=== PATIENT | female | born 1975 | race Caucasian/White ===

== ENCOUNTER → 2018-06-10 | Outpatient (REF) | END | disposition home or self-care (01) | DRG 951 | LOC: LAB 06:48 | PROVIDERS: ATTEND Family Medicine | DX: Z02.6 Encounter for examination for insurance purposes (principal) ==

== ENCOUNTER 2020-03-17 21:25 | Emergency (ER) | payer OTHER ==
[~2020-03-17] VITALS: Ht 162.6 cm; Wt 67.0 kg
[2020-03-17 21:30] VITALS: BP 140/82
== END 2020-03-17 22:00 | disposition home or self-care (01) | DRG 605 ==
LOC: ED 21:25
DX: S61.231A Puncture wound without foreign body of left index finger without damage to nail, initial encounter (principal); W46.1XXA Contact with contaminated hypodermic needle, initial encounter; Y93.F9 Activity, other caregiving; Y99.0 Civilian activity done for income or pay; Z20.828 Contact with and (suspected) exposure to other viral communicable diseases

== ENCOUNTER → 2020-11-23 | Outpatient (REF) | END | disposition home or self-care (01) | DRG 866 | LOC: LAB 09:07 | PROVIDERS: ATTEND Nurse Practitioner Family | DX: B34.2 Coronavirus infection, unspecified (principal) ==